=== PATIENT | male | born 2000 | race African-American/Black ===

== ENCOUNTER 2018-04-22 20:30 | Emergency (ER) | payer SELFPAY ==
[~2018-04-22] VITALS: Ht 167.6 cm; Wt 115.0 kg
[~2018-04-22 20:30] MED LIST: CHIL100S PO; Z.0.NO CURRENT MEDS
[2018-04-22 20:41] VITALS: BP 162/91; PULSE 84; RESP 18; TEMP 98; O2SAT 97
[2018-04-22] MEDS ORDERED: MORPHINE SULFATE 4 MG/ML INJ IV PUSH ONE (20:45)
[2018-04-22] MEDS ORDERED: KETOROLAC TROMETHAMINE 30 MG/ML (IVP) VIAL IV PUSH ONE (21:00)
--- NOTE | 2018-04-22 21:02 | PD ---
HPI Chief Complaint: Injury Time Seen by Provider: 20:39 Travel History International Travel<30 days: No Contact w/Intl Traveler<30days: No Traveled to known affect area: No History of Present Illness HPI Patient is a 17-year-old male presenting to the emergency department for evaluation of right knee pain. Patient was dancing in the kitchen with his mother when he twisted his knee causing it to dislocate. He then hit his head on the kitchen table. He did not lose consciousness. Patient reports 8 out of 10 pain. Patient was administered 6 mg of morphine by EMS en route to the hospital. Symptom onset was sudden and is constant, symptom severity is moderate, no alleviating factors. Pain is exacerbated with movement. Patient denies any significant past medical history. She denies any headache, nausea, dizziness. He has no other injuries to report. PFSH Past Medical History Medical History: Denies Significant Hx Integumentary: Yes (ECZEMA) Immunizations Current: Yes Past Surgical History Surgical History: No Previous Surgery Social History Alcohol Use: No Tobacco Use: No Substance Use: No Allergies-Medications (Allergen,Severity, Reaction): Coded Allergies: No Known Allergies (Verified , 09/11/13) Reported Meds & Prescriptions Reported Meds & Active Scripts Active Tramadol (Tramadol HCl) 50 Mg Tab 50 Mg PO Q6H PRN Ibuprofen 800 Mg Tab 800 Mg PO Q6HR PRN Review of Systems Except as stated in HPI: all other systems reviewed are Neg Musculoskeletal: Positive: Limited ROM, Pain, Other (Deformity) Physical Exam Narrative GENERAL: Well-developed, well-nourished, alert -[place] male. Appears uncomfortable, no acute distress. SKIN: Warm and dry. HEAD: Normocephalic. EYES: No scleral icterus. No injection or drainage. NECK: Supple, trachea midline. No JVD or lymphadenopathy. CARDIOVASCULAR: Regular rate and rhythm without murmurs, gallops, or rubs. RESPIRATORY: Breath sounds equal bilaterally. No accessory muscle use. GASTROINTESTINAL: Abdomen soft, non-tender, nondistended. MUSCULOSKELETAL: No cyanosis, or edema. Lateral dislocation of the right patella, 2+ dorsalis pedal pulse, no peripheral edema noted. BACK: Nontender without obvious deformity. No CVA tenderness. Data Data Last Documented VS Vital Signs Date Time Temp Pulse Resp B/P (MAP) Pulse Ox O2 Delivery O2 Flow Rate FiO2 6/6/18 20:41 98.0 84 18 162/91 (114) 97 Orders Orders Iv Access Insert/Monitor (04/22/18 20:38) Morphine Inj (Morphine Inj) (04/22/18 20:45) Ketorolac Inj (Toradol Inj) (04/22/18 21:00) ^ Knee Immobilizer (04/22/18 21:02) Knee, Ltd (1 Or 2vws) (04/22/18 ) Mandatory Outpatient Referral (04/22/18 21:29) Ed Discharge Order (04/22/18 21:29) [facility] [place] Medical Decision Making Medical Screen Exam Complete: Yes Emergency Medical Condition: Yes Interpretation(s) Last Impressions Knee X-Ray 04/22/18 0000 Signed Impressions: CONCLUSION: Negative examination Vital Signs Date Time Temp Pulse Resp B/P (MAP) Pulse Ox O2 Delivery O2 Flow Rate FiO2 04/22/18 20:41 98.0 84 18 162/91 (114) 97 Differential Diagnosis Dislocation versus fracture versus sprain versus strain versus other Narrative Course Patient is a 17-year-old male presenting to the emergency department for evaluation of a dislocated patella secondary to dancing in his kitchen. Patient 's vital signs are stable, he continues to report 8 out of 10 pain. Additional 4 mg of morphine was ordered. Patient's vital signs are stable. After patient was given morphine and Toradol, knee was reduced with hip flexion and subsequent extension of the lower leg. Patient tolerated reduction well. He reported improvement in pain. Knee x-ray is pending. Reduction was supervised by my attending physician. X-ray of the knee is negative for acute abnormality. Patient was advised to follow-up with orthopedic surgeon, he was advised to keep the knee immobilizer in place until he does so. Patient was encouraged to take medications as directed, rest, ice, elevate extremity. He was encouraged return to emergency department for any new or worsening symptoms. Patient verbalized understanding of these instructions. Patient stable for discharge. Diagnosis Primary Impression: Dislocation, patella closed Qualified Codes: S83.004A - Unspecified dislocation of right patella, initial encounter Referrals: Orthopaedic Surgeon 3 days Patient Instructions: General Instructions, Knee Immobilizer (ED), Patellar Dislocation (ED) Departure Forms: Tests/Procedures, Work Release Enter return to work date: Apr 29, 2018 Additional Instructions: Wear knee immobilizer until you are seen by orthopedic surgeon Rest, ice, elevate extremity Take medications as needed and as directed for pain Do not drive or operate machinery while taking narcotic pain medication Return to emergency department for any new or worsening symptoms Follow-up with your primary doctor Med/Other Pt SpecificInfo: Prescription(s) given Scripts Tramadol (Tramadol) 50 Mg Tab 50 MG PO Q6H Y for PAIN, #12 TAB 0 Refills Prov: Nelda Brown 04/22/18 Ibuprofen (Ibuprofen) 800 Mg Tab 800 MG PO Q6HR Y for PAIN, #40 TAB 0 Refills Prov: Nelda Brown 04/22/18 Disposition: 01 DISCHARGE HOME Condition: Stable Nelda Brown Apr 22, 2018 21:02
--- NOTE | 2018-04-22 21:22 | RADRPT ---
EXAM DATE: 04/22/2018 9:11 PM EDT AGE/SEX: 17 years / Male INDICATIONS: Post reduction right knee. CLINICAL DATA: This is the patient's initial encounter. Patient reports that signs and symptoms have been present for 1 day and indicates a pain score of 8/10. MEDICAL/SURGICAL HISTORY: None. None. COMPARISON: None . FINDINGS: Bony structures are intact and in normal alignment. Joints are intact without dislocation or signifi cant arthropathy. Osseous density is normal. Soft tissues are unremarkable. No radiopaque foreign bodies seen. CONCLUSION: Negative examination Electronically signed by: Daniel Alex MD 04/22/2018 9:20 PM EDT
[2018-04-22] MEDS ORDERED: TRAM50TA PO (21:29)
[2018-04-22] MEDS ORDERED: IBUP1TAB7 PO (21:29)
== END 2018-04-22 22:22 | disposition home or self-care (01) ==
LOC: NEPC 20:30
DX: S83.004A Unspecified dislocation of right patella, initial encounter (principal); X50.1XXA Overexertion from prolonged static or awkward postures, initial encounter; Y93.41 Activity, dancing
CPT/HCPCS: 27550; 73560; 96374; 96375; 99284; J1885; J2270

== ENCOUNTER 2018-04-29 21:42 | Emergency (ER) | payer SELFPAY ==
[~2018-04-29 21:42] MED LIST changes: -CHIL100S PO; +IBUP1TAB7 PO; +TRAM50TA PO; -Z.0.NO CURRENT MEDS
[2018-04-29 21:49] VITALS: BP 159/72; PULSE 71; RESP 16; TEMP 98.8; O2SAT 100
--- NOTE | 2018-04-29 23:31 | PD ---
HPI Chief Complaint: Injury Time Seen by Provider: 23:31 Travel History International Travel<30 days: No Contact w/Intl Traveler<30days: No Traveled to known affect area: No History of Present Illness HPI 17-year-old male came to the emergency room with history of right knee pain. Patient says that he was seen in the emergency room 1 week ago when he was diagnosed with patellar dislocation. He was put on a knee immobilizer. He just returned to work today but he thinks he overdid it and his knee started to hurt. It feels swollen and is unable to bend it. He has been keeping his knee in the knee immobilizer since past 1 week. The pain is there constantly but worse when he tries to ambulate. No radiation of the pain. Vital signs otherwise stable. He is otherwise a healthy person. [facility] Past Medical History Narrative Medical List of his past medical, surgical, social and family history is reviewed from the nursing note Integumentary: Yes (ECZEMA) Immunizations Current: Yes Social History Alcohol Use: No Tobacco Use: No Substance Use: No Allergies-Medications (Allergen,Severity, Reaction): Coded Allergies: No Known Allergies (Verified Adverse Reaction, Unknown, 04/29/18) Comments List of his allergies reviewed from the nursing note Reported Meds & Prescriptions Reported Meds & Active Scripts Active Tramadol (Tramadol HCl) 50 Mg Tab 50 Mg PO Q6H PRN Ibuprofen 800 Mg Tab 800 Mg PO Q6HR PRN Narrative Medication List of his home medications reviewed from the nursing note Review of Systems Except as stated in HPI: all other systems reviewed are Neg Musculoskeletal: Positive: Edema, Pain Physical Exam Narrative GENERAL: Awake, alert, mildest SKIN: Focused skin assessment warm/dry. HEAD: Atraumatic. Normocephalic. EYES: Pupils equal and round. No scleral icterus. No injection or drainage. ENT: No nasal bleeding or discharge. Mucous membranes pink and moist. NECK: Trachea midline. No JVD. CARDIOVASCULAR: Regular rate and rhythm. No murmur appreciated. RESPIRATORY: No accessory muscle use. Clear to auscultation. Breath sounds equal bilaterally. GASTROINTESTINAL: Abdomen soft, non-tender, nondistended. Hepatic and splenic margins not palpable. MUSCULOSKELETAL: No obvious deformities. No clubbing. No cyanosis. Right knee is swollen with decreased range of motion mainly due to the pain. NEUROLOGICAL: Awake and alert. No obvious cranial nerve deficits. Motor grossly within normal limits. Normal speech. PSYCHIATRIC: Appropriate mood and affect; insight and judgment normal. Data Data Last Documented VS Vital Signs Date Time Temp Pulse Resp B/P (MAP) Pulse Ox O2 Delivery O2 Flow Rate FiO2 04/29/18 23:04 Room Air 04/29/18 21:49 98.8 71 16 159/72 (101) 100 Orders Orders Knee, Complete (4vws) (04/29/18 ) Lidocaine 1% Inj (Xylocaine 1% Inj) (04/30/18 01:00) Ed Discharge Order (04/30/18 01:29) ^ Knee Immobilizer (04/30/18 01:29) Crutches (04/30/18 ) MDM Medical Decision Making Medical Screen Exam Complete: Yes Emergency Medical Condition: Yes Medical Record Reviewed: Yes Differential Diagnosis Knee joint effusion, knee strain Narrative Course 12:53 AM the x-ray report just came back and has been read by the radiologist as moderate to large knee joint effusion. I decided to do a knee joint arthrocentesis. Please refer to my procedure note. I explained the x-ray and the procedure to the patient. 1:30 AM the knee arthrocentesis was done successfully. 15 mL of hemorrhagic fluid was aspirated. Patient tolerated the procedure well. He will be put in a knee immobilizer and crutches to go home with. He has an appointment with orthopedics on Friday which have asked him to follow-up. Procedures Procedure Narrative Right knee arthrocentesis: Superior medial approach was taken. The area was cleaned with Betadine swab 3. 6 mL of 1% lidocaine was infiltrated in the skin to achieve local anesthesia. 18-gauge needle attached to a 60 cc syringe was inserted into the knee joint with the superior medial approach. 15 mL of hemorrhagic fluid was aspirated. Needle was taken out and pressure was applied. Rui wrap was put on a knee immobilizer applied. Patient tolerated the procedure well. EKG Prior to Arrival: No Diagnosis Primary Impression: Effusion of knee joint right Additional Instructions: Follow-up with the orthopedist on Friday as per your appointment. Keep the knee immobilizer on at all times except during shower. Return to the ER if condition worsens any other new concerns. Disposition: DISCHARGE HOME Condition: Stable Beckie Anton MD Apr 29, 2018 23:31
--- NOTE | 2018-04-30 00:40 | RADRPT ---
EXAM DATE: 04/30/2018 12:30 AM EDT AGE/SEX: 17 years / Male INDICATIONS: Right knee pain after first day of working without a knee brace worn for one week after reduction of a patella dislocation. CLINICAL DATA: This is the patient's subsequent encounter. Patient reports that signs and symptoms h ave been present for 1 week and indicates a pain score of 10/10. MEDICAL/SURGICAL HISTORY: None. None. COMPARISON: No prior exams available for comparison. FINDINGS: 4 views of the right knee. Bone alignment within normal limits. No evidence of fracture. No joint rosa rowing. Moderate to large joint effusion. CONCLUSION: Moderate to large joint effusion. Electronically signed by: Luke Pereyra MD 04/30/2018 12:39 AM EDT
[2018-04-30] MEDS ORDERED: LIDOCAINE HCL 1% 30 ML VIAL INFIL ONE (01:00)
== END 2018-04-30 02:25 | disposition home or self-care (01) ==
LOC: NEPD 21:42
DX: M25.461 Effusion, right knee (principal); M25.561 Pain in right knee; Z79.899 Other long term (current) drug therapy
CPT/HCPCS: 20610; 73564; 99283; E0113